=== PATIENT | male | born 1960 | race Caucasian/White ===

== ENCOUNTER 2024-01-29 02:16 | Inpatient (IN) | payer OTHER ==
[2024-01-29] MEDS ORDERED: fentaNYL 50 mcg/mL 1 mL Vial ONE (02:20)
[2024-01-29] MEDS ORDERED: methylPREDNISolone Sod Succ 40 MG VIAL ONE (02:23)
[2024-01-29] MEDS ORDERED: Famotidine/PF 20 mg/2ml Vial ONE (02:23)
[2024-01-29] MEDS ORDERED: diphenhydrAMINE 50 MG/ML VIAL ONE (02:23)
[2024-01-29] MEDS ORDERED: Hydrocortisone Sod Succ/PF 100 mg/2 ml Vial ONE (02:25)
[2024-01-29] MEDS ORDERED: Atropine Sulfate 1 mg/10 ml Syringe ONE (02:37)
[2024-01-29] MEDS ORDERED: EPINEPHrine 1 MG/ML VIAL ONE ×2 (02:42→03:09)
[2024-01-29] MEDS ORDERED: PHENYLEPHRINE-NS 100 MCG/ML 10 ML SYRINGE ONE (03:15)
[2024-01-29] MEDS ORDERED: Digoxin 0.5 MG/2 ML AMP ONE (03:34)
[2024-01-29] MEDS ORDERED: TICAGRELOR 90 MG TABLET ONE (03:40)
[2024-01-29] MEDS ORDERED: Heparin 10,000 UNITS/ 10 ML VIAL ONE (03:49)
[2024-01-29] MEDS ORDERED: Electrolyte Replacement Protocol 1 EACH FS PRN (04:09)
[2024-01-29] MEDS: Sodium Chloride 0.9% 1,000 ML IV SCH (04:25)
[2024-01-29 04:51] VITALS: BMI 23.7
[2024-01-29 07:22] LABS: Cardiac Risk 3.7 (Less than 4.5); Cholesterol 172 mg/dl (< 200 Desired); HDL Cholesterol 46 mg/dL (>60 Neg Risk); LDL Cholesterol, Calculated 108 mg/dL; Magnesium 1.8 mg/dL (1.6-2.6); Triglycerides 89 mg/dL (Less than 150)
[2024-01-29] MEDS: Magnesium 2 GM/50 ML(in water) 2 GM in Premix 1 BAG IVPB SCH (08:13)
[2024-01-29] MEDS: Famotidine 20 MG TAB PO SCH (08:13)
[2024-01-29] MEDS: TICAGRELOR 90 MG TABLET PO SCH (08:13)
[2024-01-29] MEDS: Aspirin Chewable 81 MG TAB PO SCH (08:14)
[2024-01-29] MEDS ORDERED: Iopamidol 370 76% 100 ML VIAL ONE (10:28)
[2024-01-29 11:44] LABS: Hemoglobin A1c 10.7 % (4.0-6.0)
[2024-01-29] MEDS: Amiodarone 150 MG in Dextrose 5% in Water 100 ML IVPB SCH (12:03)
[2024-01-29] MEDS: Amiodarone 450 MG in Dextrose 5% in Water 250 ML IVPB SCH (12:17)
[2024-01-29] MEDS: Heparin 25,000 units/D5W 500 ML IV SCH (15:02)
[2024-01-29 16:03] LABS: #Basophils 0.03 10x3/uL (0.0-0.2); %Basophils 0.4 % (0.0-1.0); %Eosinophils 0.4 % (0.0-10.0); %Lymphocytes 16.4 % (21.0-51.0); %Monocytes 9.2 % (0.0-10.0); %Neutrophils 73.2 % (42.0-75.0); Hematocrit 43.1 % (42.0-52.0); Hemoglobin 14.4 g/dL (14.0-18.0); Mean Corpuscular HGB CONC 33.4 g/dL (32.0-36.0); Mean Corpuscular Hemoglobin 29.7 pg (27.0-31.0); Mean Corpuscular Volume 88.9 fL (78.0-98.0); Mean Platelet Volume 9.7 fL (7.4-10.4); Platelet Count 227 10x3/uL (130-400); RBC Distribution Width 12.4 % (11.5-14.5); Red Blood Cell (RBC) Count 4.85 mill/uL (4.70-6.10)
[2024-01-30] MEDS: Heparin 10,000 UNITS/ 10 ML VIAL SLOW IVP SCH (01:09)
[2024-01-30 04:35] LABS: #Basophils 0.04 10x3/uL (0.0-0.2); %Basophils 0.6 % (0.0-1.0); %Eosinophils 1.1 % (0.0-10.0); %Lymphocytes 33.1 % (21.0-51.0); %Monocytes 9.7 % (0.0-10.0); %Neutrophils 55.3 % (42.0-75.0); Hematocrit 40.2 % (42.0-52.0); Hemoglobin 13.8 g/dL (14.0-18.0); Mean Corpuscular HGB CONC 34.3 g/dL (32.0-36.0); Mean Corpuscular Hemoglobin 30.8 pg (27.0-31.0); Mean Corpuscular Volume 89.7 fL (78.0-98.0); Mean Platelet Volume 9.7 fL (7.4-10.4); Platelet Count 189 10x3/uL (130-400); RBC Distribution Width 12.5 % (11.5-14.5); Red Blood Cell (RBC) Count 4.48 mill/uL (4.70-6.10)
[2024-01-30 04:40] LABS: ALT (SGPT) 65 U/L (8-55); AST (SGOT) 56 U/L (5-34); Albumin 3.3 g/dL (3.4-4.8); Alkaline Phosphatase 41 U/L (40-110); Anion Gap 12 mmol/L (10-20); BUN (Urea Nitrogen) 10 mg/dL (8.4-25.7); Bilirubin, Total 0.7 mg/dL (0.2-1.2); Calc. Creatinine Clearance 108 mL/min (70-130); Calcium 8.3 mg/dL (7.8-10.44); Carbon Dioxide 21 mmol/L (23-31); Chloride 108 mmol/L (98-107); Estimated GFR 102; Globulin 2.2 g/dL (2.4-3.5); Glucose 256 mg/dL (80-115); Potassium 3.9 mmol/L (3.5-5.1); Protein, Total 5.5 g/dL (5.8-8.1); Sodium 137 mmol/L (136-145)
[2024-01-30] MEDS ORDERED: Loperamide HCl 2 MG CAP PO PRN (09:45)
[2024-01-30] MEDS: Loperamide HCl 2 MG CAP PO SCH (09:56)
[2024-01-31 12:37] VITALS: BP 128/76; TEMP 97.9
[2024-01-31] MEDS ORDERED: Atorvastatin Calcium 20 MG TAB PO SCH (21:00)
[2024-01-31] MEDS ORDERED: Atorvastatin Calcium 40 MG TAB PO SCH (21:00)
== END 2024-01-31 14:27 | disposition home or self-care (01) | DRG 321 ==
LOC: ERS 02:16 → CCL 02:37 → CCU 03:30 → 2SE 01-30 22:31
PROVIDERS: ADMIT Internal Medicine Cardiovascular Disease; ATTEND Internal Medicine Cardiovascular Disease
PROC: 4A023N7 Measurement of Cardiac Sampling and Pressure, Left Heart, Percutaneous Approach (ICD-10-PCS; principal; 2024-01-29)
PROC: 027035Z Dilation of Coronary Artery, One Artery with Two Drug-eluting Intraluminal Devices, Percutaneous Approach (ICD-10-PCS; 2024-01-29)
PROC: 02C03ZZ Extirpation of Matter from Coronary Artery, One Artery, Percutaneous Approach (ICD-10-PCS; 2024-01-29)
PROC: B2151ZZ Fluoroscopy of Left Heart using Low Osmolar Contrast (ICD-10-PCS; 2024-01-29)
PROC: B2111ZZ Fluoroscopy of Multiple Coronary Arteries using Low Osmolar Contrast (ICD-10-PCS; 2024-01-29)
PROC: 5A2204Z Restoration of Cardiac Rhythm, Single (ICD-10-PCS; 2024-01-29)
PROC: 5A1223Z Performance of Cardiac Pacing, Continuous (ICD-10-PCS; 2024-01-29)
PROC: B240ZZ3 Ultrasonography of Single Coronary Artery, Intravascular (ICD-10-PCS; 2024-01-29)
DX: I21.19 ST elevation (STEMI) myocardial infarction involving other coronary artery of inferior wall (principal); I49.01 Ventricular fibrillation; I97.89 Other postprocedural complications and disorders of the circulatory system, not elsewhere classified; Z91.041 Radiographic dye allergy status; E11.9 Type 2 diabetes mellitus without complications; Z79.82 Long term (current) use of aspirin; Z79.01 Long term (current) use of anticoagulants; Z79.899 Other long term (current) drug therapy; I48.91 Unspecified atrial fibrillation
CPT/HCPCS: 33210; 36415; 36416; 80053; 80061; 83036; 83735; 84443; 85025; 85347; 92941; 92960; 92973; 92978; 93005; 93010; 93306; 93458; 93798; 96374; 97139; C1725; C1753; C1769; C1874; C1887; C1894; C9606; J0171; J0282; J0461; J1160; J1200; J1644; J1720; J2919; J3010; J3475; J3490; J7030; J7070; Q9967

== ENCOUNTER 2024-02-02 15:08 | Observation (INO) | payer OTHER ==
[2024-02-02 16:42] VITALS: BMI 21.4
[2024-02-02] MEDS ORDERED: Glucagon 1 MG/ML KIT IM PRN (19:07)
[2024-02-02] MEDS ORDERED: Senokot S 8.6-50 MG TAB PO PRN (19:07)
[2024-02-02] MEDS ORDERED: Ondansetron PF 4 MG/2 ML Vial IVP PRN (19:07)
[2024-02-02] MEDS ORDERED: Dextrose 5% in Water 1,000 ML IV PRN (19:07)
[2024-02-02] MEDS ORDERED: Ondansetron ODT 4 MG TAB PO PRN (19:07)
[2024-02-02] MEDS ORDERED: Acetaminophen 650 MG Suppository PR PRN (19:07)
[2024-02-02] MEDS ORDERED: Dextrose 50% Abboject 50 ML SYRINGE SLOW IVP PRN (19:07)
[2024-02-02] MEDS ORDERED: Insulin Lispro 100 UNIT/ML 10 ML VIAL SC PRN (19:07)
[2024-02-02 20:21] LABS: Troponin I 3.042 ng/mL (< 0.028)
[2024-02-02] MEDS: Atorvastatin Calcium 40 MG TAB PO SCH (20:39)
[2024-02-02] MEDS: Famotidine 20 MG TAB PO SCH (20:39)
[2024-02-02] MEDS: TICAGRELOR 90 MG TABLET PO SCH (20:39)
[2024-02-02] MEDS: Insulin Lispro 100 UNIT/ML 10 ML VIAL SC PRN (23:02)
[2024-02-02] MEDS: Nitroglycerin 2% Ointment 1 INCH/1 GM Packet TOP SCH (23:03)
[2024-02-02 23:14] LABS: Critical Call Chem Troponin I RESULT DECREASING; Troponin I 3.023 ng/mL (< 0.028)
[2024-02-03 05:15] LABS: #Basophils 0.06 10x3/uL (0.0-0.2); %Eosinophils 2.9 % (0.0-10.0); %Monocytes 12.6 % (0.0-10.0); %Neutrophils 54.3 % (42.0-75.0); Hematocrit 46.3 % (42.0-52.0); Mean Corpuscular HGB CONC 34.6 g/dL (32.0-36.0); Mean Corpuscular Hemoglobin 30.2 pg (27.0-31.0); Mean Corpuscular Volume 87.5 fL (78.0-98.0); Mean Platelet Volume 9.4 fL (7.4-10.4); Platelet Count 280 10x3/uL (130-400); RBC Distribution Width 12.4 % (11.5-14.5); Red Blood Cell (RBC) Count 5.29 mill/uL (4.70-6.10)
[2024-02-03 05:49] LABS: Anion Gap 17 mmol/L (10-20); BUN (Urea Nitrogen) 13 mg/dL (8.4-25.7); Calc. Creatinine Clearance 90 mL/min (70-130); Calcium 9.6 mg/dL (7.8-10.44); Carbon Dioxide 21 mmol/L (23-31); Chloride 106 mmol/L (98-107); Estimated GFR 100; Glucose 228 mg/dL (80-115); Potassium 3.8 mmol/L (3.5-5.1); Sodium 140 mmol/L (136-145)
[2024-02-03] MEDS: Acetaminophen 325 MG TAB PO PRN (05:54)
[2024-02-03] MEDS: Aspirin Chewable 81 MG TAB PO SCH (09:34)
[2024-02-03 09:37] VITALS: BP 131/73; TEMP 97
== END 2024-02-03 13:30 | disposition home or self-care (01) ==
LOC: 2NO 16:20
PROVIDERS: ADMIT Internal Medicine; ATTEND Internal Medicine
DX: I21.4 Non-ST elevation (NSTEMI) myocardial infarction (principal); R07.89 Other chest pain; R20.2 Paresthesia of skin; R79.89 Other specified abnormal findings of blood chemistry; I25.10 Atherosclerotic heart disease of native coronary artery without angina pectoris; E11.9 Type 2 diabetes mellitus without complications; Z90.89 Acquired absence of other organs; Z98.890 Other specified postprocedural states; Z79.82 Long term (current) use of aspirin; Z79.899 Other long term (current) drug therapy; Z91.041 Radiographic dye allergy status
CPT/HCPCS: 36415; 36416; 80048; 85025; G0378; J1815

== ENCOUNTER → 2024-02-14 | Emergency (ER) | payer OTHER | LOC: ERS 16:51 | DX: R07.89 Other chest pain (principal); I25.2 Old myocardial infarction; E11.9 Type 2 diabetes mellitus without complications; Z87.891 Personal history of nicotine dependence; Z79.899 Other long term (current) drug therapy | CPT/HCPCS: 71045; 99285 ==